=== PATIENT | male | born 1960 | race Caucasian/White ===

== ENCOUNTER 2020-12-06 15:20 | Emergency (ER) | payer MEDICARE, BC ==
[~2020-12-06] VITALS: Ht 177.8 cm; Wt 70.3 kg
[2020-12-06] MEDS ORDERED: BACLOFEN5 MG PO (15:31)
[2020-12-06] MEDS ORDERED: CHILDREN'S ZYRT10 M1 PO (15:31)
[2020-12-06] MEDS ORDERED: BENZTROPINE ME0.5 MG PO (15:31)
[2020-12-06] MEDS ORDERED: CLONAZEPAM 0.50.5 M1 PO (15:48)
[2020-12-06 15:49] LABS: ABSOLUTE LYMPHOCYTES 0.9 thou/uL (0.8-5.3); ABSOLUTE MONOCYTES 0.4 thou/uL (0.0-1.2); ABSOLUTE NEUTROPHILS 5.6 thou/uL (1.6-8.1); BASOPHILS 0.7 %; EOSINOPHILS 0.1 %; LYMPHOCYTES 12.9 %; MCH 31.1 pg (26.0-34.0); MCHC 34.9 g/dL (28.0-37.0); MCV 89.1 fL (80.0-100.0); MPV 7.8 fl. (7.2-11.1); NUCLEATED RBCS 0 /100WBC; PLATELET COUNT* 199 thou/uL (150-400); POLYS 80.3 %; RBC 4.49 mil/uL (4.50-6.00); RDW-CV 13.8 % (10.5-14.5)
[2020-12-06] MEDS ORDERED: MILK OF MA400 MG/5 M PO (15:49)
[2020-12-06] MEDS ORDERED: MELATONIN3 M1 PO (15:49)
[2020-12-06] MEDS ORDERED: SENNA8.8 MG/5 M PO (15:49)
[2020-12-06] MEDS ORDERED: MUPIROCIN1 GM TOP (15:50)
[2020-12-06] MEDS ORDERED: DESYREL150 MG PO (15:50)
[2020-12-06] MEDS ORDERED: BIOFREEZE118 ML TP (15:50)
[2020-12-06 15:59] LABS: CALCIUM 8.6 mg/dL (8.5-10.1); CREATININE 0.7 mg/dL (0.6-1.3); POTASSIUM 3.7 mmol/L (3.5-5.1)
[2020-12-06 16:04] LABS: ALBUMIN 3.4 g/dL (3.4-5.0); TOTAL BILIRUBIN 0.4 mg/dL (<0.1-1.0); TOTAL PROTEIN 7.2 g/dL (6.4-8.2)
[2020-12-06 17:31] LABS: URINE BILIRUBIN NEGATIVE (Negative); URINE BLOOD NEGATIVE (Negative); URINE CLARITY CLEAR; URINE COLOR YELLOW; URINE GLUCOSE-RANDOM NEGATIVE (Negative); URINE KETONES NEGATIVE (Negative); URINE LEUKOCYTES-REFLEX NEGATIVE (Negative); URINE NITRITE-REFLEX NEGATIVE (Negative); URINE PROTEIN NEGATIVE (Negative)
[2020-12-06 17:45] VITALS: BP 132/72
--- NOTE | 2020-12-07 14:20 | EKG ---
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: : 1960 Requested By: Harvey Mendez Order Number: [id number] MD: Pernell Garcia Measurements Intervals [place] Rate: 96 P: NV: QRS: 28 QRSD: 75 T: 58 QT: 351 QTc: 444 Interpretive Statements Atrial fibrillation Anterior infarct, old possible Baseline wander in lead(s) V3 No previous ECG available for comparison Electronically Signed On 12-07-2020 14:20:23 CDT by Pernell Garcia [email or web address] <ELECTRONICALLY SIGNED> By: Pernell Garcia MD, [facility] 12/07/20 1420 1608 1608 Pernell Garcia MD, [facility] /EPI
== END 2020-12-06 17:45 | disposition home or self-care (01) ==
LOC: M.ERS 15:20
PROVIDERS: Family Medicine
DX: F03.90 Unspecified dementia, unspecified severity, without behavioral disturbance, psychotic disturbance, mood disturbance, and anxiety (principal); W18.39XA Other fall on same level, initial encounter; Y93.89 Activity, other specified; Y92.128 Other place in nursing home as the place of occurrence of the external cause; Y99.8 Other external cause status